=== PATIENT | female | born 1965 | race Caucasian/White ===

== ENCOUNTER 2017-06-05 11:51 | Inpatient (IN) | payer BC, OTHER ==
[~2017-06-05] VITALS: Ht 165.1 cm; Wt 91.0 kg
--- NOTE | ~2017-06-05 | CO ---
Unit #: [id number] #: [id number] Patient: SHOBHA SHAH [id number] [address] [place], [place] [address] [id number] I MR#: [id number] NAME: SHOBHA SHAH ROOM: [facility] Age: 51 Sex: F Admission Date: 06/05/2017 : 1965 Attending Physician: Romulo Young M.D. Primary Care Physician: Liliane Khan CONSULTATION REPORT BRIEF HISTORY The patient is a 51-year-old lady who presents with the recent onset of nausea, vomiting, diarrhea, left lower quadrant abdominal pain. She says the pain has been crampy, nonradiating. No blood per rectum. No hematemesis. Feels better since admission. No fever or chills. No trauma. PAST MEDICAL HISTORY 1. Recent EGD for followup with gastric ulcers that were improving. 2. Hypertension. 3. Diabetes. PAST SURGICAL HISTORY 1. Cholecystectomy. 2. Caesarian sections. 3. Multiple ventral hernias. MEDICATIONS Home medications are Toprol, Norvasc, Zofran, Lortab, Protonix. ALLERGIES Multiple allergies. SOCIAL HISTORY No smoking. No alcohol. FAMILY HISTORY Negative for GI malignancy. REVIEW OF SYSTEMS No cardiopulmonary complaints at this time. Ten systems reviewed and negative. PHYSICAL EXAMINATION GENERAL: She is awake, alert and appropriate. VITAL SIGNS: Currently afebrile. HEENT: Unremarkable. NECK: Neck is supple. No JVD. Trachea midline. LUNGS: Clear to auscultation. Bilateral breath sounds are symmetric. CARDIOVASCULAR: Regular rate and rhythm. ABDOMEN: Her abdomen is soft, mildly tender in the left lower quadrant. No rebound. No masses. No hernias. EXTREMITIES: No clubbing, cyanosis or edema. DIAGNOSTIC STUDIES Unit #: [id number] #: [id number] Patient: SHOBHA SHAH LABS: Labs show normal white count, normal hemoglobin. Chemistries are normal other than potassium of 3. IMAGING: CT scan shows no acute disease. ASSESSMENT Ileus secondary to hypokalemia. Possible viral syndrome. PLAN Recommend correct potassium. Will reassess. I see no surgical indications at this time. Dictated by... Alexandro Prater M.D. KERRI/elayne TD: 06/07/2017 07:47 JOB #: [id number] CONSULTATION REPORT Page 1 of 1 X Alexandro Prater MD CONSULTATION REPORT
--- NOTE | ~2017-06-05 | CR269 ---
[facility] A Service of [facility] RADIOLOGY TEXT RESULTS PATIENT: SHOBHA SHAH LOCATION: [place] [address] : [birth year] UNIT #: [id number] AGE: [address]: Romulo Young MD SEX: F ORDER DR: [id number] [address] [address] [id number] I MR#: [id number] Acc #: [id number] NAME: SHOBHA SHAH : 1965 SEX: F STUDY DATE/TIME: 06/07/2017 11:06 UNIT: [facility] ROOM: [facility] STUDY DESCRIPTION: CR Upper GI and SBFT Attending Physician: Romulo Young M.D. Ordering Physician: Romulo Young M.D. MEDICAL IMAGING REPORT This report is preliminary unless electronic signature is present EXAM Small bowel follow-through INDICATIONS Nausea, vomiting and abdominal pain for 2 days. FINDINGS Fluoroscopy time was 3.2 minutes. 58 fluoroscopic images were taken and 7 spot abdominal radiographs were taken. Evaluation of the cervical esophagus demonstrates normal swallowing mechanism. No evidence of aspiration or laryngeal penetration. Evaluation of the thoracic esophagus shows normal thoracic esophageal motility. No evidence of hiatal hernia or stricture. Evaluation of the stomach demonstrates a normal fold pattern. Evaluation the duodenum is within normal limits. Note, the patient has had a cholecystectomy. Evaluation of the small bowel shows normal small bowel transit time. The fold pattern is unremarkable. No evidence for bowel obstruction. IMPRESSION 1. There is no evidence for bowel obstruction. 2. The esophagus and stomach are also within normal limits. Dictated by... Jose De Jesus Simon M.D. [facility] A Service of [facility] RADIOLOGY TEXT RESULTS PATIENT: SHOBHA SHAH LOCATION: [facility] : [birth year] UNIT #: [id number] AGE: [address]: Romulo Young MD SEX: F ORDER DR: THIS IS AN ELECTRONICALLY VERIFIED REPORT Jose De Jesus Simon M.D. at 06/10/2017 9:06 AM ARS/zena TD: 06/07/2017 19:33 JOB #: [id number] MEDICAL IMAGING REPORT Page 1 of 1 COPY
--- NOTE | ~2017-06-05 | TOC ---
Unit #: [id number] #: [id number] Patient: SHOBHA MOLINA [id number] [address] [address] [id number] I MR#: [id number] NAME: SHOBHA MOLINA ROOM: [facility] Age: 51 Sex: F Admission Date: 06/05/2017 : 1965 Attending Physician: Romulo Young M.D. Primary Care Physician: Liliane Khan Aprn TRANSFER OF CARE SUMMARY PRIMARY DIAGNOSIS Intractable nausea. SECONDARY DIAGNOSES 1. Ileus. 2. Chronic pain syndrome. 3. Intermittent headache. HISTORY OF PRESENT ILLNESS Shobha Molina is a 51-year-old white male who came in with nausea, vomiting, and abdominal pain. The abdominal pain and the vomiting have been improving the severe intermittent nausea has been continuing and is intermittently associated with headache. CONSULTANTS General surgery and gastroenterology. HOSPITAL COURSE Patient is chronically on high dose Lortab at home from her pain management physician. So far imaging workup have been negative including CT of the head, upper GI and small bowel follow through, CT of the head, abdominal series and CT of the abdomen, although the CT of the abdomen suggested an ileus. Additional testing has suggested that that is improving. Still pending at this time is a gastric emptying study. If this is negative and no other workup is planned by the consultants, consideration could be made for discharge on Sunday. Final discharge summary will be dictated by the hospitalist taking care of the patient on the day of discharge. Dictated by... Unit #: [id number] #: [id number] Patient: SHOBHA MOLINA Venus Kelly/priyanka TD: 06/08/2017 13:15 JOB #: [id number] TRANSFER OF CARE SUMMARY Page 1 of 1 X Romulo Young MD TRANSFER OF CARE SUMMARY
--- NOTE | ~2017-06-05 | EKG ---
PATIENT: SHOBHA SHAH UNIT #: [id number] Ventricular Rate: 103 BPM Atrial Rate: 103 BPM P-R Interval: 150 ms QRS Duration: 86 ms Q-T Interval: 336 ms QTC Calculation(Bezet): 440 ms P [place]: 45 degrees Calculated R [place]: 19 degrees Calculated T [place]: -24 degrees Diagnosis Line: Sinus tachycardia Diagnosis Line: Possible Inferior infarct , age undetermined Diagnosis Line: Abnormal ECG Diagnosis Line: When compared with ECG of 09-DEC-2016 13:47, Diagnosis Line: No significant change was found Diagnosis Line: Confirmed by VIDAL STONE MD ([id number]) on Diagnosis Line: 06/05/2017 5:12:23 PM INTERPRETING MD: BERTHA GOODMAN
--- NOTE | ~2017-06-05 | CT4 ---
[facility] A Service of [facility] RADIOLOGY TEXT RESULTS PATIENT: SHOBHA SHAH LOCATION: [facility] 55[facility] : [birth year] UNIT #: [id number] AGE: [address]: Romulo Young MD SEX: F ORDER DR: [id number] [facility] [address] [place], [place] [address] [id number] I MR#: [id number] Acc #: [id number] NAME: SHOBHA SHAH. : 1965 SEX: F STUDY DATE/TIME: 06/05/2017 14:25 UNIT: [facility] ROOM: [facility] STUDY DESCRIPTION: CT Abd and Pelv Wo Cont Attending Physician: Brian Velázquez M.D. Ordering Physician: Martínez Brewer M.D. Primary Care Physician: Liliane Khan MEDICAL IMAGING REPORT This report is preliminary unless electronic signature is present EXAM CT abdomen and pelvis without contrast HISTORY A 51-year-old female left-sided abdominal pain mid abdominal pain for 2 days. History of prior lithotripsy. COMPARISON CT abdomen and pelvis 12/25/2016 TECHNIQUE Axial images performed through the abdomen and pelvis with multiplanar reconstructed images reviewed. No contrast administered. This CT exam was performed with one or more of the following radiation dose reduction techniques: automatic exposure control, adjustment of mA and/or kV according to patient size, and iterative reconstruction. FINDINGS Abdomen: Lung bases unremarkable. The liver, spleen and gallbladder appear normal. Pancreas and adrenal glands unremarkable. There are multiple bilateral nonobstructing renal stones. Calcification also noted. The posterior aspect of the right lobe liver compatible with granulomas disease. GI tract to include the appendix normal. Pelvis: Bladder unremarkable. Uterus surgically absent. Osseous structures and soft tissues appear normal. Mild facet arthropathy lower lumbar spine. IMPRESSION 1. No definite acute intraabdominal intrapelvic pathology. Patient does demonstrate a moderate amount of air distension of the stomach colon [facility] A Service [facility] RADIOLOGY TEXT RESULTS PATIENT: SHOBHA SHAH LOCATION: [facility] 5501[address]10 : [birth year] UNIT #: [id number] AGE: [address]: Romulo Young MD SEX: F ORDER DR: and small bowel which is nonspecific. Could represent a mild ileus. 2. Multiple nonobstructing renal stones. 3. Post hysterectomy and cholecystectomy. Dictated by... Carol Simon M.D. THIS IS AN ELECTRONICALLY VERIFIED REPORT Carol Simon M.D. at 06/07/2017 8:06 AM Leny TD: 06/05/2017 21:52 JOB #: [id number] MEDICAL IMAGING REPORT Page 1 of 1 COPY
--- NOTE | ~2017-06-05 | CR2 ---
[facility] A Service of [facility] RADIOLOGY TEXT RESULTS PATIENT: SHOBHA SHAH LOCATION: [facility] 55-01 : [birth year] UNIT #: [id number] AGE: [address]: Romulo Young MD SEX: F ORDER DR: [id number] [facility] [address] [facility]. [place], [place] [address] [id number] I MR#: [id number] Acc #: [id number] NAME: SHOBHA SHAH. : 1965 SEX: F STUDY DATE/TIME: 06/05/2017 17:24 UNIT: [facility] ROOM: [facility] STUDY DESCRIPTION: CR Abdomen Acute Series Attending Physician: Brian Velázquez M.D. Ordering Physician: Constantin Reyes M.D. Primary Care Physician: Liliane Khan MEDICAL IMAGING REPORT This report is preliminary unless electronic signature is present EXAM Acute abdominal series 06/05/2017. HISTORY Abdominal pain. FINDINGS AP radiograph the chest is presented with supine and upright radiographs of the abdomen and pelvis. Comparison to CT abdomen and pelvis performed earlier on the same date. Bony structures of the thorax unremarkable. Mild cardiac enlargement. Lungs moderately well inflated without evidence of acute pulmonary disease. Calcified granuloma at the right lung base. No pleural effusion or pneumothorax. Prior cholecystectomy. The bowel gas pattern is abnormal. There is mild to moderate air distension of small bowel and colon with air seen throughout the colon to the level of the rectum. Small bowel distension slightly disproportionately greater than the colon. The earlier CT examination today gave no compelling evidence of small bowel obstruction. Given slightly disproportionate distension of small bowel relative to colon, the possibility of a developing partial small bowel obstruction could remain in the differential diagnosis. The overall appearance more likely reflects generalized ileus. Correlate with patient's clinical presentation. Short-interval followup to confirm resolution is recommended. There is no free air. The solid organ contours are unremarkable. Mild degenerative change in the lumbar spine. Dictated by... Alexandro Sharif M.D. THIS IS AN ELECTRONICALLY VERIFIED REPORT [facility] A Service of [facility] RADIOLOGY TEXT RESULTS PATIENT: SHOBHA SHAH LOCATION: [facility] 553-01 : [birth year] UNIT #: [id number] AGE: [address]: Romulo Young MD SEX: F ORDER DR: Alexandro Sharif M.D. at 06/06/2017 6:04 PM Maicol TD: 06/06/2017 06:47 JOB #: [id number] MEDICAL IMAGING REPORT Page 1 of 1 COPY
--- NOTE | ~2017-06-05 | DS ---
Unit #: [id number] #: [id number] Patient: SHOBHA MOLINA [id number] [address] [address] [id number] I MR#: [id number] NAME: SHOBHA MOLINA. ROOM: [facility] Age: 51 Sex: F Admission Date: 06/05/2017 : 1965 Discharge Date: 06/09/2017 Attending Physician: Romulo Young M.D. Primary Care Physician: Liliane Khan DISCHARGE SUMMARY PRINCIPAL DIAGNOSES ON DISCHARGE 1. Intractable nausea, vomiting, and abdominal pain likely secondary to acute gastroenteritis. 2. Ileus. 3. Chronic pain syndrome. 4. Headaches. SECONDARY DIAGNOSES 1. Hypertension. 2. Diabetes. 3. History of gastroesophageal reflux disease, status post fundoplication. HISTORY OF PRESENT ILLNESS/BRIEF HOSPITAL COURSE Ms. Molina is a 51-year-old female who presented to the emergency room complaining of nausea, vomiting, as well as, abdominal pain. Initial conservative management in the emergency room failed to control her symptoms, so the patient was admitted to the hospital. The patient has a long history of issues related to chronic diarrhea and abdominal pain and in the past has been found to have gastric ulcers as well as hiatal hernia that was treated with surgery, fundoplication in the past. Upon admission, the patient was started on IV fluids and her nausea was treated with a p.r.n. Phenergan. The patient was also complaining of headaches and a CT scan of the brain was obtained. It showed no acute findings. Acute abdominal series was suggestive of an ileus and a CT scan of the abdomen was then obtained. It failed to demonstrate any acute abdominal pathology. GI and surgery were consulted. The patient was considered not to have a surgical abdomen. An upper GI series and small bowel follow through were ordered by GI and it failed to reveal any evidence for bowel obstruction. It was considered that the patient may have had problems related to an ileus and gastroenteritis. Her symptoms improved slowly during the hospitalization. The patient was able to tolerate p.o. and having also passing gas and moving her bowels. Because of the chronicity of her symptoms, also a gastric emptying study was obtained and that showed normal results. Her nausea and vomiting were to some degree considered also to be related to the history of fundoplication and it was recommended that she stay on a diet consistent of small frequent meals. DISCHARGE MEDICATIONS The patient was instructed to continue her home medications includin. Metoprolol. 2. Norvasc. 3. Zofran. 4. Lortab. Unit #: [id number] #: [id number] Patient: SHOBHA MOLINA 5. Protonix. She was also continued on: 1. Lamictal 50 mg p.o. b.i.d. 2. Zanaflex 4 mg p.o. q.6 hours p.r.n. 3. Percocet 10/325 p.o. q.i.d. p.r.n. DISPOSITION The patient was discharged home. CONDITION Improved. DIET Small frequent meals. ACTIVITY As tolerated. FOLLOWUP The patient is to follow up with her primary care practitioner within one to two weeks after discharge and followup with Dr. Galindo from GI in six weeks. The patient was also instructed to return to the emergency room in case she had any worsening symptoms. Dictated by... Benji Sanderson M.D. CARLOS/di TD: 06/10/2017 07:59 JOB #: [id number] DISCHARGE SUMMARY Page 1 of 1 X X DISCHARGE SUMMARY
--- NOTE | ~2017-06-05 | CO ---
Unit #: [id number] #: [id number] Patient: SHOBHA MOLINA [id number] [address] [address] [id number] I MR#: [id number] NAME: SHOBHA MOLINA. ROOM: 553 Age: 51 Sex: F Admission Date: 06/05/2017 : 1965 Attending Physician: Romulo Young M.D. Primary Care Physician: Liliane Khan CONSULTATION REPORT REASON FOR CONSULTATION Nausea, vomiting, and abdominal pain. HISTORY OF PRESENT ILLNESS Ms. 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 The patient has never smoked, but does not drink alcohol. She presents with left-sided abdominal pain along with profuse nausea and vomiting up to 20 times a day and diarrhea. These symptoms have been present for the past 3 to 4 days. Since after admission, her vomiting and diarrhea have stopped. The abdominal pain is reduced, but she is still quite severely nauseated. She says she had been chronically nauseated for a long long time. The patient had a gastric ulcer on an endoscopy, which was subsequently repeated and gastric ulcer healing was documented. PAST MEDICAL HISTORY Significant for history of hypertension, gastroesophageal reflux, and chronic back pain. PAST SURGICAL HISTORY Included surgery for hiatus hernia, lithotripsy, right breast surgery for MRSA, left breast surgery, cholecystectomy, dilatation and curettage, section, left knee arthroscopy. ALLERGIES These include promethazine, isosorbide mononitrate, iodinated contrast media, nitrofurantoin, ciprofloxacin, scopolamine, and latex. MEDICATIONS On admission included the following, her admission medications include Toprol, Norvasc, Zofran, Lortab, and Protonix. SOCIAL HISTORY The patient lives at home and does not smoke or drink alcohol. FAMILY HISTORY There is no family history of colon, pancreatic cancer, or liver disease. REVIEW OF SYSTEMS Detailed review of organ systems is significant for history of chronic nausea along with some vomiting and diarrhea as mentioned above and abdominal pain. There is no history of fever, chills, or rigors. No history of headache, seizures, chest pain, or syncope. No history of weight loss. No history of skin rash, aphthous ulcers in the mouth, or Unit #: [id number] #: [id number] Patient: SHOBHA MOLINA reactive arthritis. No history of focal seizures or extremity weakness. PHYSICAL EXAMINATION GENERAL: She is awake, alert, and oriented, and comfortable. VITAL SIGNS: Stable with a temperature of 98.5, pulse is 82 per minute and regular, respiratory rate is 18 per minute, blood pressure 148/94. She weighs 194 pounds, which is close to her baseline weight. HEENT: She has no pallor, icterus, lymphadenopathy, or peripheral edema. CARDIOVASCULAR: Normal heart sounds. No murmurs on auscultation. LUNGS: Normal breath sounds. Good air entry. ABDOMEN: Soft and nontender. Liver and spleen are not palpable. Bowel sounds normal. DIAGNOSTIC STUDIES LABORATORY RESULTS: Shows a normal CBC and CMP except for an albumin, which is low from a baseline of 4 to 2.9. INR 0.9. IMAGING STUDIES: The patient's CT scan is negative. An x-ray of the abdomen shows ileus. Her small bowel follow-through was done earlier today and the results are pending. CLINICAL IMPRESSION The patient's most likely diagnosis seems to be gastroenteritis and also needs to rule out gastroparesis especially small bowel follow-through was normal. We will also advance diet as tolerated and reviewed the patient later tomorrow. Thank you very much for asking me to see this pleasant woman. I appreciate the consult. Dictated by... Venus Araujo/mitchel TD: 06/08/2017 15:06 JOB #: [id number] CC: Nanette Benito M.D. CONSULTATION REPORT Page 1 of 1 X Duane Galindo MD CONSULTATION REPORT
--- NOTE | ~2017-06-05 | HP ---
Unit #: [id number] #: [id number] Patient: SHOBHA SHAH [id number] [address] [place], [place] [address] [id number] MR#: [id number] NAME: SHOBHA SHAH ROOM: Age: 51 Sex: F Admission Date: 06/05/2017 : 1965 Attending Physician: Martínez Brewer M.D. Primary Care Physician: Liliane Khan HISTORY AND PHYSICAL CHIEF COMPLAINT Nausea and vomiting since Sunday. HISTORY OF PRESENT ILLNESS The patient is a pleasant 51-year-old female brought to the emergency room with nausea and vomiting. The patient stated the patient has been having nausea and vomiting gradually worsening to the point she cannot take it, associated with an abdominal pain. The patient also complains of the left upper quadrant pain since Sunday. The patient stated the patient had a history of a hernia repair hie-enk-q-half years ago and had the revision at [facility]. The patient had a CT of the abdomen and pelvis that showed patient had an ileus and is being admitted for the above reasons. The patient continues to have dry heaves and associated with nausea and has been vomiting till prior to arrival to the emergency room. The patient also complains of the diarrhea associated with the nausea and vomiting; denies any fever, chills, cough, shortness of breath, chest pain. PAST MEDICAL HISTORY History of hypertension, history of gastroesophageal reflux disease and , diet controlled diabetes, gastric ulcers and neuropathy. PAST SURGICAL HISTORY Left knee arthroscopy, , gallbladder, D/C x2, left breast milk ducts, right breast for MRSA, lithotripsy x4, hiatal hernia and hysterectomy. ALLERGIES Promethazine, isosorbide, iodinated contrast media, nitrofurantoin, Cipro, scopolamine and latex and morphine. HOME MEDICATIONS She is on Toprol, Norvasc, Zofran, Lortab and Protonix. SOCIAL HISTORY The patient lives at home, does not drink alcohol or smoke cigarettes. FAMILY HISTORY There is no family history of colon and pancreatic cancer or liver disease. REVIEW OF SYMPTOMS Positive for nausea and vomiting and abdominal pain and diarrhea. Denies any chest pain. Denies any fever. Denies any headache. Other systems Unit #: [id number] #: [id number] Patient: SHOBHA SHAH reviewed are negative. PHYSICAL EXAMINATION GENERAL APPEARANCE: On examination the patient is lying on a bed not in acute distress. VITAL SIGNS: Temperature 98.1, pulse 95, respiratory rate 15, blood pressure 123/61, sating 100% at room air. HEENT: Head atraumatic, normocephalic. Pupils equal, round and reacting to light and accommodation. Extraocular movements intact. Dry mucous membrane. NECK: Supple. LUNGS: Decreased air entry at the bases. HEART: Regular rate and rhythm. ABDOMEN: Generalized abdominal tenderness and denies no rigidity, no rebounding. EXTREMITIES: No cyanosis. No clubbing. NEUROLOGIC: Awake, alert and oriented. DIAGNOSTIC STUDIES LABORATORY DATA: WBC 10.2, hemoglobin 13.5, hematocrit 40.4, platelets 293 and sodium 139, potassium 3, chloride 109, bicarb 22, glucose 109, BUN 10, creatinine 0.9, AST 19, ALT 13, albumin 4.1, lipase 30, amylase 29. UA shows trace leukocyte esterase, 2 to 5 urine hyaline crystals. Troponin less than 0.05. IMAGING: CT of the abdomen shows positive for ileus. CARDIOVASCULAR: The EKG shows sinus tachycardia at a rate of 103 beats per minute. ASSESSMENT 1. Ileus. 2. Hypokalemia. 3. Nausea and vomiting. PLAN Plan to admit the patient as observation with the telemetry. Continue with the bowel rest, IV fluids. Replace the potassium. Will have the and LSA consult for the ileus and pain control with the Dilaudid and further recommendations will follow. Dictated by Venus Bassett/eliana TD: 06/05/2017 18:10 JOB #: [id number] Unit #: [id number] #: [id number] Patient: SHOBHA SHAH HISTORY AND PHYSICAL Page 1 of 1 X KARUNA CRAIG MD HISTORY AND PHYSICAL
--- NOTE | ~2017-06-05 | NM19 ---
[facility] A Service of [facility] & [facility] RADIOLOGY TEXT RESULTS PATIENT: SHOBHA SHAH LOCATION: [facility] 55-01 : [birth year] UNIT #: [id number] AGE: [address]: Romulo Young MD SEX: F ORDER DR: [id number] [facility] [address]. [place], [place] [address] [id number] MR#: [id number] Acc #: [id number] NAME: SHOBHA SHAH : 1965 SEX: F STUDY DATE/TIME: 06/08/2017 9:04 UNIT: [facility] ROOM: [facility] STUDY DESCRIPTION: NM Gastric Emptying Study Attending Physician: Romulo Young M.D. Ordering Physician: Duane Galindo M.D. Primary Care Physician: Liliane Khan R.N. MEDICAL IMAGING REPORT This report is preliminary unless electronic signature is present EXAM Gastric emptying scan, 06/08/2017. HISTORY Nausea and vomiting, diarrhea and abdominal bloating, early satiety, left upper quadrant abdominal pain symptoms since November 2016 worsening since June 04, 2017. FINDINGS The patient ingested 530 mcCi of technetium 99m tagged sulfur colloid in eggs. Images of the upper abdomen were obtained for 4 hours. After 1 hour, the stomach was 20% empty and after 2 hours the stomach was 72% empty and after 4 hours the stomach was 96% empty. Normal range is greater than 60% empty after 2 hours of imaging and greater than 90% empty after 4 hours of imaging. IMPRESSION Normal gastric emptying after 2 and 4 hours of imaging. Dictated by... Zackary Xavier M.D. THIS IS AN ELECTRONICALLY VERIFIED REPORT Zackary Xavier M.D. at 06/11/2017 7:21 AM LEIGHA/lele TD: 06/08/2017 18:56 JOB #: [id number] MEDICAL IMAGING REPORT Page 1 of 1 COPY
--- NOTE | ~2017-06-05 | CT71 ---
[facility] A Service of [facility] RADIOLOGY TEXT RESULTS PATIENT: SHOBHA SHAH LOCATION: [facility] : 69 UNIT #: [id number] AGE: [address]: Romulo Young MD SEX: F ORDER DR: [id number] [facility] [address]. [place], [place] [address] [id number] I MR#: [id number] Acc #: [id number] NAME: SHOBHA SHAH : 1965 SEX: F STUDY DATE/TIME: 06/06/2017 11:08 UNIT: [facility] ROOM: [facility] STUDY DESCRIPTION: CT Head Wo Contrast Attending Physician: Romulo Young M.D. Ordering Physician: Romulo Young M.D. Primary Care Physician: Liliane Khan MEDICAL IMAGING REPORT This report is preliminary unless electronic signature is present EXAM CT head 06/06/2017 HISTORY Nausea vomiting since 06/05/2017 headache all over since [address] exam was performed with one or more of the following radiation dose reduction techniques: automatic control, adjustment of mA and/or kV according to patient size, and iterative reconstruction. FINDINGS CT head performed skull base through vertex without intravenous contrast. Comparison 12/26/2016. Brainstem unremarkable. Cerebellum and cerebral hemispheres show normal garcias matter - white matter differentiation. No hemorrhage. No evidence of acute cortical ischemia. The midline structures are nondisplaced. The basal ganglia are intact. The ventricles, cisterns and sulci are normal in size and contour. No intra or extraaxial mass effect. No abnormal fluid collection. Visualized orbital soft tissues unremarkable. Minimal mucosal thickening sphenoid sinus. No evidence of acute sinusitis. IMPRESSION 1. Brain appears normal. If patient has ongoing neurologic symptoms, consider follow up imaging. 2. Minimal mucosal thickening sphenoid sinus. No indication of acute sinusitis. Dictated by... Alexandro Sharif M.D. [facility] A Service [facility] RADIOLOGY TEXT RESULTS PATIENT: SHOBHA SHAH LOCATION: [facility] : 69 UNIT #: [id number] AGE: [address]: Romulo Young MD SEX: F ORDER DR: THIS IS AN ELECTRONICALLY VERIFIED REPORT Alexandro Sharif M.D. at 06/06/2017 6:04 PM JAMEL/reyes TD: 06/06/2017 13:44 JOB #: [id number] MEDICAL IMAGING REPORT Page 1 of 1 COPY
[~2017-06-05 11:51] MED LIST: ADVIL200 M1 PO; DICLOFENAC PO; DULERA 100 MCG/13 GM IH; HCTZ PO; LORTAB 10-3251 EACH PO; METFORMIN; NEXIUM PO; NORCO 10-325 TA1 TAB PO; NORCO 7.5/325 T1 TAB PO; NORVASC PO; PROTONIX PO; PROTONIX20 MG PO; REGLAN; TAGAMET PO; TOPROL XL PO; TOPROL XL50 MG PO; TYLENOL EXTRA500 M1 PO; ULTRAM PO; VICODIN 5/500 T1 TAB PO; VOLTAREN75 MG PO; ZOFRAN PO; [UNRECOGNIZED DRUG - REMARK]
[2017-06-05 14:07] LABS: BASOPHIL% 0.1 % (0-2.5); DIFF IND NO; HEMATOCRIT 40.4 % (35.0-45.0); HEMOGLOBIN 13.5 gm/dL (12.0-16.0); LYMPHOCYTE# 0.2 X10e3 (1.0-3.5); LYMPHOCYTE% 2.4 % (17.0-45.0); MEAN CELL VOLUME 86.1 FL (83-96); MEAN CORPUSCULAR HEMOGLOBIN 28.8 PG (28-34); MEAN CORPUSCULAR HGB CONC 33.4 g/dL (30-36); MEAN PLATELET VOLUME 6.8 FL (6.5-11.5); MONOCYTE# 0.3 X10e3 (0-1.0); MONOCYTE% 2.7 % (3.0-12.0); NEUTROPHIL# 9.6 X10e3 (1.5-7.1); NEUTROPHIL% 94.8 % (40-75); PLATELET COUNT 293 X10e3 (140-420); RED BLOOD COUNT 4.69 X10e (3.90-5.30); WHITE BLOOD COUNT 10.2 X10e3 (4.0-10.5)
[2017-06-05 14:18] LABS: ALBUMIN SERUM 4.1 g/dL (3.5-5.0); BILIRUBIN, DIRECT 0.1 mg/dL (0.0-0.2); BILIRUBIN,INDIRECT 0.4 mg/dL (0.0-0.9); BILIRUBIN,TOTAL 0.5 mg/dL (0.2-2.0); BUN/CREATININE RATIO 11.11; CALCIUM SERUM 9.2 mg/dL (8.4-10.2); CREATININE SERUM 0.9 mg/dL (0.6-1.4); GLOM FILT RATE Estimated 75.1 mL/min (>60); PROTEIN TOTAL SERUM 7.8 g/dL (6.0-8.3)
[2017-06-05 15:04] LABS: URINE SOURCE CLEAN CATCH
[2017-06-05 15:12] LABS: URINE APPEARANCE CLEAR; URINE BILIRUBIN NEG (NEG); URINE BLOOD NEG (NEG); URINE COLOR YELLOW; URINE GLUCOSE NEG (NEG); URINE KETONE 2+ (NEG); URINE LEUKOCYTE ESTERASE TRACE (NEG); URINE NITRATE NEG (NEG); URINE PROTEIN NEG (NEG); URINE SPECIFIC GRAVITY 1.024 (1.003-1.035); URINE UROBILINOGEN 0.2 MG/DL (NEG)
[2017-06-05 15:14] LABS: URBCS1 AUWI 0-2 /[HPF] (0-2); URINE BACTERIA AUWI NEG (NEGATIVE); URINE SQUAMOUS EPITHELIAL CELL NONE SEEN /[HPF]
[2017-06-05 15:26] LABS: CULTURE INDICATED? NO
[2017-06-05 16:28] LABS: POC - CKMB <1.0 ng/mL (0.0-7.9); POC - TROPONIN <0.05 ng/mL (<=0.05)
[2017-06-05] MEDS ORDERED: PATIENT'S PHARMACY (16:30)
[2017-06-05] MEDS ORDERED: LAMICTAL PO (16:30)
[2017-06-05] MEDS ORDERED: OXYCODONE-ACET1 EAC1 PO (16:31)
[2017-06-05] MEDS ORDERED: VITAMIN D250000 UNIT PO (16:32)
[2017-06-05] MEDS ORDERED: NORVASC PO (16:32)
[2017-06-05] MEDS ORDERED: TOPROL XL50 MG PO (16:32)
[2017-06-05] MEDS ORDERED: ZANAFLEX PO (16:32)
[2017-06-05] MEDS ORDERED: ZOFRAN PO (16:33)
[2017-06-05] MEDS ORDERED: PROTONIX PO (16:33)
[2017-06-05] MEDS ORDERED: ZANAFLEX4 M1 PO (16:59)
[2017-06-06 05:36] LABS: HEMATOCRIT 35.9 % (35.0-45.0); MEAN CORPUSCULAR HEMOGLOBIN 29.1 PG (28-34); MEAN CORPUSCULAR HGB CONC 33.5 g/dL (30-36); MEAN PLATELET VOLUME 6.8 FL (6.5-11.5); RED BLOOD COUNT 4.13 X10e (3.90-5.30); RED CELL DISTRIBUTION WIDTH 14.2 % (11.0-15.5); WHITE BLOOD COUNT 6.1 X10e3 (4.0-10.5)
[2017-06-06 06:08] LABS: BUN/CREATININE RATIO 8.75; CALCIUM SERUM 8.4 mg/dL (8.4-10.2); CREATININE SERUM 0.8 mg/dL (0.6-1.4); GLOM FILT RATE Estimated 86.6 mL/min (>60)
[2017-06-07 07:01] LABS: ALBUMIN SERUM 2.9 g/dL (3.5-5.0); BILIRUBIN,TOTAL 0.2 mg/dL (0.2-2.0); BUN/CREATININE RATIO 7.77; CALCIUM SERUM 8.1 mg/dL (8.4-10.2); CREATININE SERUM 0.9 mg/dL (0.6-1.4); GLOM FILT RATE Estimated 75.1 mL/min (>60); MAGNESIUM 1.8 mg/dL (1.6-3.0); POTASSIUM 3.9 mmol/L (3.5-5.1); PROTEIN TOTAL SERUM 5.4 g/dL (6.0-8.3)
[2017-06-08 06:55] LABS: BASOPHIL% 0.3 % (0-2.5); EOSINOPHIL# 0.1 X10e3 (0-0.7); EOSINOPHIL% 1.5 % (0.0-7.0); HEMATOCRIT 36.4 % (35.0-45.0); HEMOGLOBIN 12.1 gm/dL (12.0-16.0); LYMPHOCYTE# 1.5 X10e3 (1.0-3.5); LYMPHOCYTE% 23.5 % (17.0-45.0); MEAN CELL VOLUME 86.4 FL (83-96); MEAN CORPUSCULAR HEMOGLOBIN 28.8 PG (28-34); MEAN CORPUSCULAR HGB CONC 33.3 g/dL (30-36); MEAN PLATELET VOLUME 6.9 FL (6.5-11.5); MONOCYTE# 0.5 X10e3 (0-1.0); MONOCYTE% 8.7 % (3.0-12.0); NEUTROPHIL# 4.2 X10e3 (1.5-7.1); PLATELET COUNT 244 X10e3 (140-420); RED BLOOD COUNT 4.21 X10e (3.90-5.30); RED CELL DISTRIBUTION WIDTH 13.6 % (11.0-15.5); WHITE BLOOD COUNT 6.3 X10e3 (4.0-10.5)
[2017-06-08 07:03] LABS: DIFF IND NO
[2017-06-08 07:33] LABS: ALBUMIN SERUM 3.3 g/dL (3.5-5.0); BILIRUBIN,TOTAL 0.1 mg/dL (0.2-2.0); BUN/CREATININE RATIO 6.25; CALCIUM SERUM 8.7 mg/dL (8.4-10.2); CREATININE SERUM 0.8 mg/dL (0.6-1.4); GLOM FILT RATE Estimated 86.6 mL/min (>60); POTASSIUM 3.9 mmol/L (3.5-5.1); PROTEIN TOTAL SERUM 6.3 g/dL (6.0-8.3)
[2017-06-09 07:10] LABS: HEMOGLOBIN 11.6 gm/dL (12.0-16.0); MEAN CELL VOLUME 87.7 FL (83-96); MEAN CORPUSCULAR HEMOGLOBIN 28.2 PG (28-34); MEAN CORPUSCULAR HGB CONC 32.2 g/dL (30-36); MEAN PLATELET VOLUME 7.2 FL (6.5-11.5); RED BLOOD COUNT 4.11 X10e (3.90-5.30); RED CELL DISTRIBUTION WIDTH 13.9 % (11.0-15.5); WHITE BLOOD COUNT 5.9 X10e3 (4.0-10.5)
[2017-06-09 07:57] LABS: BUN/CREATININE RATIO 14.44; CALCIUM SERUM 8.6 mg/dL (8.4-10.2); CREATININE SERUM 0.9 mg/dL (0.6-1.4); GLOM FILT RATE Estimated 75.1 mL/min (>60); MAGNESIUM 2.2 mg/dL (1.6-3.0); POTASSIUM 3.3 mmol/L (3.5-5.1)
== END 2017-06-09 17:12 | disposition home or self-care (01) | DRG 390 ==
LOC: CED 11:51 → C5B 19:46 → CEDOF 19:46 → C5B 19:46
PROVIDERS: Emergency Medicine; Internal Medicine; Internal Medicine Gastroenterology
DX: K56.7 Ileus, unspecified (principal); I10 Essential (primary) hypertension; K52.9 Noninfective gastroenteritis and colitis, unspecified; G89.4 Chronic pain syndrome; R51 Headache; E11.9 Type 2 diabetes mellitus without complications; E87.6 Hypokalemia; Z90.49 Acquired absence of other specified parts of digestive tract; Z88.5 Allergy status to narcotic agent; Z88.8 Allergy status to other drugs, medicaments and biological substances; Z91.041 Radiographic dye allergy status; Z91.040 Latex allergy status
CPT/HCPCS: 36415; 70450; 74022; 74176; 74245; 78264; 80048; 80053; 80076; 81003; 82150; 82553; 83690; 83735; 84132; 84484; 85025; 85027; 93005; 96361; 96374; 96375; 96376; 99285; A9541; C9113; J0500; J1170; J1885; J2405; J3475

== ENCOUNTER 2017-07-23 22:13 | Observation (INO) | payer BC, OTHER ==
[~2017-07-23] VITALS: Ht 167.6 cm; Wt 88.0 kg
--- NOTE | ~2017-07-23 | EKG ---
PATIENT: SHOBHA SHAH UNIT #: [id number] Ventricular Rate: 89 BPM Atrial Rate: 89 BPM P-R Interval: 164 ms QRS Duration: 94 ms Q-T Interval: 364 ms QTC Calculation(Bezet): 442 ms P Baker: 55 degrees Calculated R Baker: 0 degrees Calculated T Baker: 11 degrees Diagnosis Line: Normal sinus rhythm Diagnosis Line: Possible Left atrial enlargement Diagnosis Line: Left ventricular hypertrophy Diagnosis Line: Abnormal ECG Diagnosis Line: When compared with ECG of 05-JUN-2017 15:50, Diagnosis Line: Nonspecific T wave abnormality no longer evident Diagnosis Line: in Anterolateral leads Diagnosis Line: Confirmed by VIDAL STONE MD ([id number]) on Diagnosis Line: 07/24/2017 2:10:57 PM INTERPRETING MD: BERTHA GOODMAN
--- NOTE | ~2017-07-23 | CO ---
Unit #: [id number] #: [id number] Patient: SHOBHA SHAH [id number] [facility]. [address] [place], [place] [address] [id number] I MR#: [id number] NAME: SHOBHA SHAH. ROOM: 306 Age: 51 Sex: F Admission Date: 07/24/2017 : 1965 Attending Physician: Barby Hutson M.D. Primary Care Physician: Liliane Khan Consultation Date: 07/24/2017 CONSULTATION REPORT DICTATED FOR Duane Galindo M.D. PRIMARY CARE PHYSICIAN Liliane Khan. REASON FOR CONSULTATION Intractable nausea and vomiting. HISTORY OF PRESENT ILLNESS The patient is a 51-year-old female with history of hypertension, peptic ulcer disease, GERD, status post fundoplication, admitted with recurrent intractable nausea and vomiting. The patient was admitted to this facility in May for similar presentation. At that time, the patient had underwent extensive workup including small bowel follow through, gastric emptying study, CT of abdomen and pelvis, all studies were unremarkable. The patient has history of severe GERD and had underwent a Wilman fundoplication in 2014. In 2015, the patient had underwent revision fundoplication/hernia repair. Since then, the patient has had persistent nausea and occasionally vomiting. After discharge in May, the patient had follow up with her surgeon who did the surgery and subsequently underwent fundoplication and dilation which provided symptomatic relief for 2 weeks, but then symptoms came back and has been persistent since. It is noteworthy the patient has a history of gastric ulcer on EGD in 08/2016. She has had a repeat EGD in 04/2017 which was essentially normal. The patient states she has not been able to keep much down with persistent nausea and vomiting. No fever or chills. She did mention an episode of hematemesis, but none since. No recent change in bowel habit or significant weight loss. PAST MEDICAL HISTORY Hypertension, diet controlled diabetes, GERD, status post Wilman fundoplication, peptic ulcer disease, peripheral neuropathy, B12 deficiency. PAST SURGICAL HISTORY Wilman fundoplication, hernia repair, and recently dilation of fundoplication, left arthroscopic knee surgery, , cholecystectomy, D and C, left breast duct surgery. ALLERGIES Promethazine, isosorbide, contrast media, Macrodantin, Cipro, latex, morphine, scopolamine. Unit #: [id number] #: [id number] Patient: SHOBHA SHAH HOME MEDICATIONS Include Toprol, Norvasc, Zofran, Protonix, Lamictal, Zanaflex, and Percocet. FAMILY HISTORY None for colon, pancreatic cancer, or liver disease. SOCIAL HISTORY The patient lives with her daughter and son-in-law. She denies alcohol, tobacco, or illicit drug use. REVIEW OF SYSTEMS Detailed review of organ systems significant for chronic nausea, vomiting, occasional diarrhea, epigastric pain. No history of fever or chills. No history of headache, seizures, chest pain, syncope. No unintentional weight loss. The rest of the review of system was done and are negative. PHYSICAL EXAMINATION GENERAL: The patient is awake, alert, oriented, comfortable, in no acute distress. VITAL SIGNS: Stable with temperature 97.7, blood pressure 140/74, heart rate 57, respirations 18. HEENT: There is no pallor. No scleral icterus. No lymphadenopathy. No peripheral edema. LUNGS: Clear to auscultation bilaterally. CARDIOVASCULAR: Regular rate and rhythm. ABDOMEN: Soft, nondistended. Mild tenderness in epigastric without guarding. Positive bowel sounds. Liver and spleen not palpable. DIAGNOSTIC STUDIES LABORATORY RESULTS: Initial CMP was unremarkable. CBC notable for WBC 14.1, otherwise unremarkable. Urinalysis also within normal limits. IMAGING STUDIES: Abdominal x-ray showed nonspecific bowel gas pattern which could suggest improving ileus, otherwise unremarkable. CLINICAL IMPRESSION AND PLAN The patient with persistent nausea and vomiting, most likely related to previous fundoplication and hernia surgery. The patient has had extensive workup including esophagogastroduodenoscopy, gastric emptying study, small bowel follow through, and abdominal CT, all of which were noncontributory. Recommend symptomatic management at this time. Once stable, the patient needs to follow up with her surgeon Dr. Hutchison at [facility] for further management. The patient has been discussed with Dr. Galindo. Further recommendations to follow. Thank you very much for asking us to see this patient. We appreciate the consult. Dictated by... NARESH Mayes/mitchel TD: 07/26/2017 02:06 JOB #: [id number] Unit #: [id number] #: [id number] Patient: SHOBHA SHAH CONSULTATION REPORT Page 1 of 1 X X CONSULTATION REPORT
--- NOTE | ~2017-07-23 | HP ---
Unit #: [id number] #: [id number] Patient: SHOBHA SHAH [id number] [address] [place], [place] [address] [id number] MR#: [id number] NAME: SHOBHA SHAH. ROOM: 306 Age: 51 Sex: F Admission Date: 07/24/2017 : 1965 Attending Physician: Barby Hutson M.D. Primary Care Physician: Liliane Khan Aprn HISTORY AND PHYSICAL CHIEF COMPLAINT Intractable nausea and vomiting. HISTORY This 51-year-old female with hypertension, GERD, peptic ulcer disease, is admitted for intractable nausea and vomiting. The patient states that she was well until 3 days ago when she developed increasing nausea with then intractable nausea and vomiting. At one point, she vomited so vigorously that she did have a small amount of blood in her emesis. Experiencing epigastric discomfort along with chills and sweats. Notes soft stool but denies diarrhea. The patient had been admitted to this facility for 4 days in May for intractable nausea and vomiting and underwent extensive workup including small bowel follow through, gastric emptying study and CT scan of the abdomen and pelvis. There was a question of ileus on her CT scan. Small bowel follow through and gastric emptying study were negative. Patient stated that she was also admitted in June for several days and underwent an EGD by Dr. Galindo. However, I cannot find records. She states that she had an esophageal stricture and was referred back to her surgeon who did a dilation. Patient does have a history of GERD and underwent surgery for hiatal hernia which apparently became somewhat complicated and needed re-do versus reconstruction. I do see an EGD 08/2016 which showed a gastric ulcer and erosive diffuse gastritis. Patient presented to our emergency department late last evening where she was given Zofran, bolused with fluids, given 40 mg of IV Protonix, and 2 doses of Dilaudid but still is unable to keep down p.o. PAST MEDICAL HISTORY 1. Essential hypertension. 2. Diet controlled AODM. 3. GERD, peptic ulcer disease, gastritis, status post surgery for hiatal hernia. 4. Peripheral neuropathy. 5. B12 deficiency. 6. Left arthroscopic knee surgery. 7. . 8. Cholecystectomy. 9. D and C x2. 10. Left breast duct surgery. 11. MRSA breast infection requiring surgery. 12. ESWL x4. Unit #: [id number] #: [id number] Patient: SHOBHA SHAH 15. Hysterectomy. ALLERGIES Promethazine, isosorbide, iodinated contrast media, Macrodantin, Cipro, scopolamine, latex and morphine. HOME MEDICATIONS From the beset I can determine include: 1. Toprol XL 50 mg daily. 2. Norvasc 5 mg daily. 3. P.r.n. Zofran. 4. Protonix 40 mg b.i.d. 5. Lamictal 50 mg b.i.d. 6. Zanaflex 4 mg q. h.s. 7. Percocet 10/325 q.i.d. p.r.n. FAMILY HISTORY Negative for GI disease. SOCIAL HISTORY The patient lives with her daughter and son-in-law who is a information security consultant at this facility. She is a lifelong nonsmoker, does not drink alcohol. REVIEW OF SYSTEMS Notable for nausea, vomiting, abdominal pain, hypertension, GERD, diet controlled AODM, peptic ulcer disease, neuropathy, B12 deficiency, above mentioned surgeries. All other systems were reviewed and otherwise negative. PHYSICAL GENERAL APPEARANCE: Pleasant, 51-year-old, mildly obese female, currently in no acute distress. VITAL SIGNS: Temperature 97.6, pulse 96, respirations 16, blood pressure 146/88. O2 saturation is 100% on room air. HEENT: Eyes PERRLA. Extraocular muscles are intact. Pharynx is benign. NECK: Supple without adenopathy or thyromegaly. CHEST: Clear. CARDIAC: Normal S1 and S2 without S3, S4 or murmur. ABDOMEN: Bowel sounds are present. Patient is tender in the epigastric region but without rebound or guarding. No hepatosplenomegaly or masses. EXTREMITIES: Without C, C or E. Pedal pulses are present. NEUROLOGIC EXAM: The patient is awake, alert, oriented. Cranial nerves are intact. Equal strength throughout. DIAGNOSTIC STUDIES LABORATORY: Admission labs - hematocrit 38, white blood count is 14.1, normal platelet count. SMA-12 and lipase are normal. Urinalysis - 2+ leukocyte esterase with 10-25 white cells, 1+ bacteria but moderate squamous epithelial cells making this a suspect specimen. CARDIOVASCULAR: EKG - normal sinus rhythm, rate 89. Normal appearing. ASSESSMENT 1. Intractable nausea and vomiting with extensive workup in the past. Patient reports a recent EGD and esophageal dilatation performed in Unit #: [id number] #: [id number] Patient: SHOBHA SHAH June although I cannot find records. 2. Diet controlled AODM. 3. Peripheral neuropathy. 4. B12 deficiency. 5. Essential hypertension. 6. History of peptic ulcer disease. 7. Chronic pain. 8. Questionable UTI. PLANS 1. IV fluids and supportive treatment. 2. Proton pump inhibitor, Reglan and Zofran. 3. SCDs for DVT prophylaxis. 4. Check acute abdominal series. 5. Will give a dose of antibiotics and re-collect urine. 6. GI to see in consultation. Dictated by Mary Manzo M.D. AML/df TD: 07/24/2017 05:41 JOB #: [id number] CC: Liliane Khan Aprn HISTORY AND PHYSICAL Page 1 of 1 X Mary Manzo MD X HISTORY AND PHYSICAL
--- NOTE | ~2017-07-23 | CR7 ---
[facility] A Service of [facility] & [facility] RADIOLOGY TEXT RESULTS PATIENT: SHOBHA SHAH LOCATION: [facility] 306-01 : [birth year] UNIT #: [id number] AGE: [address]: Barby Hutson MD SEX: F ORDER DR: [id number] [facility] [address] [place], [place] [address] [id number] MR#: [id number] Acc #: [id number] NAME: SHOBHA SHAH. : 1965 SEX: F STUDY DATE/TIME: 07/24/2017 05:32 UNIT: [id number] ROOM: [facility] STUDY DESCRIPTION: CR Abdomen Single AP View Attending Physician: Barby Hutson M.D. Ordering Physician: Mary Manzo M.D. Primary Care Physician: Liliane Khan R.N. MEDICAL IMAGING REPORT This report is preliminary unless electronic signature is present EXAM Abdomen, 07/24 at 05:32 INDICATION Vomiting for 2 days with centralized abdominal pain with new onset back pain. FINDINGS Supine views of the abdomen are compared with 06/05/2017. Cholecystectomy clips are present. Bowel gas pattern remains nonspecific but nonobstructive. Overall appearance is that of an improving ileus. There is a small calcification in the left mid abdomen which could lie within the left kidney but may lie within the bowel. There is degenerative disease in the lumbar spine. IMPRESSION Nonspecific bowel gas pattern. Overall, images would suggest ileus, improved from 06/05/2017. Dictated by... Kwame Khan Jr., M.D. THIS IS AN ELECTRONICALLY VERIFIED REPORT Kwame Khan Jr., M.D. at 07/24/2017 9:21 PM POLI/jr TD: 07/24/2017 14:59 JOB #: [id number] MEDICAL IMAGING REPORT Page 1 of 1 COPY
--- NOTE | ~2017-07-23 | DS ---
Unit #: [id number] #: [id number] Patient: SHOBHA SHAH [id number] [address] [place], [place] [address] [id number] I MR#: [id number] NAME: SHOBHA SHAH. ROOM: 306 Age: 51 Sex: F Admission Date: 07/24/2017 : 1965 Discharge Date: 07/25/2017 Attending Physician: Barby Hutson M.D. Primary Care Physician: Liliane Khan DISCHARGE SUMMARY REASON FOR ADMISSION Intractable nausea and vomiting. HISTORY OF PRESENT ILLNESS/HOSPITAL COURSE The patient is a 51-year-old female with underlying history of hypertension, GERD, peptic ulcer disease, who was admitted secondary to intractable nausea and vomiting. Apparently, she was well until approximately 3 days prior to admission when she developed vomiting episodes that she stated that she may have seen blood. She therefore became concerned because of the vomiting would not subside, subsequently presented to the hospital for further evaluation. She had been admitted in May for similar symptoms and she underwent an extensive workup at that time including a small bowel followthrough, gastric emptying study as well as CT scan of her abdomen and pelvis. She also underwent an EGD by Dr. Galindo. Apparently, she had a stricture that was dilated at that point in time. She states that from that discharge in May, she went home. She was otherwise doing well until approximately 3 days ago. She was subsequently admitted, placed on telemetry floor. We placed consultation of Dr. Galindo. After evaluation and discussion with him, the patient was initiated on conservative management as well as symptomatic management including PPI, nausea medications, and Reglan IV. She responded appropriately. She was gradually transitioned from clear into regular diet to which she has tolerated that well. There have been no acute emesis episodes while she has been here. She has had some nausea, but otherwise it is fairly uncontrolled. She is now comfortable and states that she wishes to go home. Appropriate outpatient followup with Dr. Galindo was recommended and also recommend that she follow up with the primary care physician within 7 to 10 days. FINAL DISCHARGE DIAGNOSES 1. Intractable nausea, vomiting, likely viral etiology. 2. Hypertension. 3. Diet-controlled type 2 diabetes. 4. Prior history of gastroesophageal reflux disease, peptic ulcer disease, currently on proton-pump inhibitors therapy. 5. Peripheral neuropathy. 6. B12 deficiency. Unit #: [id number] #: [id number] Patient: SHOBHA SHAH FINAL DISCHARGE MEDICATIONS Lamictal 25 mg p.o. q.6., Norvasc 5 mg p.o. daily, Toprol-XL 50 mg p.o. daily, Percocet 10/325 one tablet p.o. q.6 p.r.n. This is the home medication. No new prescription given. Protonix 40 mg p.o. b.i.d. and Zanaflex 4 mg p.o. q.h.s. DISCHARGE CONDITION Stable. DISCHARGE DISPOSITION Home. Dictated by... Venus Mendieta/mitchel TD: 07/26/2017 21:19 JOB #: [id number] DISCHARGE SUMMARY Page 1 of 1 X Barby Hutson MD X DISCHARGE SUMMARY
[~2017-07-23 22:13] MED LIST changes: +LAMICTAL PO; +OXYCODONE-ACET1 EAC1 PO; +PATIENT'S PHARMACY; +VITAMIN D250000 UNIT PO; +ZANAFLEX PO; +ZANAFLEX4 M1 PO
[2017-07-24 01:08] LABS: BASOPHIL% 0.2 % (0-2.5); EOSINOPHIL% 0.2 % (0.0-7.0); LYMPHOCYTE# 2.6 X10e3 (1.0-3.5); LYMPHOCYTE% 18.4 % (17.0-45.0); MEAN CELL VOLUME 86.8 FL (83-96); MEAN CORPUSCULAR HEMOGLOBIN 27.3 PG (28-34); MEAN CORPUSCULAR HGB CONC 31.5 g/dL (30-36); MEAN PLATELET VOLUME 6.7 FL (6.5-11.5); MONOCYTE# 0.9 X10e3 (0-1.0); MONOCYTE% 6.6 % (3.0-12.0); NEUTROPHIL# 10.6 X10e3 (1.5-7.1); NEUTROPHIL% 74.6 % (40-75); PLATELET COUNT 363 X10e3 (140-420); RED BLOOD COUNT 4.37 X10e (3.90-5.30); RED CELL DISTRIBUTION WIDTH 14.2 % (11.0-15.5); WHITE BLOOD COUNT 14.1 X10e3 (4.0-10.5)
[2017-07-24 01:09] LABS: DIFF IND NO
[2017-07-24 01:37] LABS: ALBUMIN SERUM 4.4 g/dL (3.5-5.0); ALKALINE PHOSPHATASE 78 U/L (32-92); ALT (SGPT) 13 U/L (10-40); AST (SGOT) 21 U/L (10-42); BILIRUBIN,TOTAL 0.3 mg/dL (0.2-2.0); BLOOD UREA NITROGEN 20 mg/dL (9-23); CALCIUM SERUM 9.3 mg/dL (8.4-10.2); CARBON DIOXIDE 26 mmol/L (22-31); CHLORIDE 107 mmol/L (100-111); GLOM FILT RATE Estimated 66.1 mL/min (>60); GLUCOSE FASTING 70 mg/dL (70-110); LIPASE 30 U/L (22-51); POTASSIUM 3.7 mmol/L (3.5-5.1); PROTEIN TOTAL SERUM 7.8 g/dL (6.0-8.3); SODIUM 139 mmol/L (135-145)
[2017-07-24 01:38] LABS: BILIRUBIN, DIRECT <0.1 mg/dL (0.0-0.2); BILIRUBIN,INDIRECT 0.2 mg/dL (0.0-0.9)
[2017-07-24 02:40] LABS: URINE SOURCE CLEAN CATCH
[2017-07-24 02:44] LABS: URINE APPEARANCE CLEAR; URINE BILIRUBIN NEG (NEG); URINE BLOOD NEG (NEG); URINE COLOR YELLOW; URINE GLUCOSE NEG (NEG); URINE KETONE TRACE (NEG); URINE LEUKOCYTE ESTERASE 2+ (NEG); URINE NITRATE NEG (NEG); URINE PH 6.5 (5-8); URINE PROTEIN NEG (NEG); URINE SPECIFIC GRAVITY 1.018 (1.003-1.035); URINE UROBILINOGEN 0.2 MG/DL (NEG)
[2017-07-24 02:46] LABS: CULTURE INDICATED? YES; URBCS1 AUWI 0-2 /[HPF] (0-2); URINE BACTERIA AUWI 1+ (NEGATIVE); URINE SQUAMOUS EPITHELIAL CELL MOD /[HPF]
[2017-07-24 03:00] LABS: POC - CKMB 1.1 ng/mL (0.0-7.9); POC - TROPONIN <0.05 ng/mL (<=0.05)
[2017-07-24 07:49] LABS: URINE SOURCE CLEAN CATCH
[2017-07-24 07:54] LABS: URINE APPEARANCE CLEAR; URINE BILIRUBIN NEG (NEG); URINE BLOOD NEG (NEG); URINE COLOR YELLOW; URINE GLUCOSE NEG (NEG); URINE KETONE TRACE (NEG); URINE LEUKOCYTE ESTERASE NEG (NEG); URINE NITRATE NEG (NEG); URINE PROTEIN NEG (NEG); URINE SPECIFIC GRAVITY 1.017 (1.003-1.035); URINE UROBILINOGEN 0.2 MG/DL (NEG)
[2017-07-24] MEDS ORDERED: OXYCODONE-ACET1 EAC1 PO (09:50)
[2017-07-24] MEDS ORDERED: PATIENT'S PHARMACY (09:50)
[2017-07-24] MEDS ORDERED: PROTONIX PO (09:50)
[2017-07-24] MEDS ORDERED: VITAMIN D250000 UNIT PO (09:50)
[2017-07-24] MEDS ORDERED: NORVASC PO (09:51)
[2017-07-24] MEDS ORDERED: LAMICTAL PO (09:51)
[2017-07-24] MEDS ORDERED: METOPROLOL SUCC50 MG PO (09:51)
[2017-07-24] MEDS ORDERED: ZANAFLEX PO (09:51)
[2017-07-25 04:44] LABS: HEMATOCRIT 36.5 % (35.0-45.0); HEMOGLOBIN 11.8 gm/dL (12.0-16.0); MEAN CELL VOLUME 87.2 FL (83-96); MEAN CORPUSCULAR HEMOGLOBIN 28.3 PG (28-34); MEAN CORPUSCULAR HGB CONC 32.5 g/dL (30-36); MEAN PLATELET VOLUME 7.4 FL (6.5-11.5); RED BLOOD COUNT 4.18 X10e (3.90-5.30); RED CELL DISTRIBUTION WIDTH 14.3 % (11.0-15.5); WHITE BLOOD COUNT 8.1 X10e3 (4.0-10.5)
[2017-07-25 05:09] LABS: BUN/CREATININE RATIO 5.55; CALCIUM SERUM 8.5 mg/dL (8.4-10.2); CREATININE SERUM 0.9 mg/dL (0.6-1.4); GLOM FILT RATE Estimated 75.1 mL/min (>60); POTASSIUM 3.3 mmol/L (3.5-5.1)
== END 2017-07-25 19:30 | disposition home or self-care (01) | DRG 392 ==
LOC: CED 22:13 → CEDOF 07-24 05:15 → C3A PCU 07-24 05:15 → CEDOF 07-24 05:18 → CED 07-24 05:18 → CEDOF 07-24 05:18 → C3A PCU 07-24 12:09
PROVIDERS: Emergency Medicine; Family Medicine; Internal Medicine
DX: R11.2 Nausea with vomiting, unspecified (principal); I10 Essential (primary) hypertension; E11.42 Type 2 diabetes mellitus with diabetic polyneuropathy; K21.9 Gastro-esophageal reflux disease without esophagitis; E53.8 Deficiency of other specified B group vitamins; G89.29 Other chronic pain; Z87.19 Personal history of other diseases of the digestive system; Z87.11 Personal history of peptic ulcer disease; Z86.14 Personal history of Methicillin resistant Staphylococcus aureus infection; Z88.1 Allergy status to other antibiotic agents; Z88.5 Allergy status to narcotic agent; Z91.040 Latex allergy status; Z91.041 Radiographic dye allergy status; Z88.8 Allergy status to other drugs, medicaments and biological substances; Z79.899 Other long term (current) drug therapy; Z79.891 Long term (current) use of opiate analgesic; Z90.49 Acquired absence of other specified parts of digestive tract; Z90.710 Acquired absence of both cervix and uterus; Z98.890 Other specified postprocedural states
CPT/HCPCS: 36415; 74000; 80048; 80076; 81003; 82553; 83690; 84484; 85025; 85027; 87086; 93005; 96361; 96374; 96375; 96376; 99285; C9113; G0378; J0696; J1170; J2405; J2765